=== PATIENT | male | born 1970 | race Asian ===

== ENCOUNTER 2023-09-22 08:51 | Emergency (ER) | payer OTHER ==
[2023-09-22] MEDS ORDERED: amLODIPine BESYLATE 5 MG TABLET (FP) PO ONE (09:00)
[2023-09-22 09:08] VITALS: PULSE 80; RESP 16; TEMP 98.5; BMI 23.5
[2023-09-22 09:59] LABS: HEMOGLOBIN 15.6 G/dL (11.7-16.9); MCH 28.2 pg (25.7-33.7); MCHC 33.1 g/dl (32.0-35.9); MEAN CELL VOLUME 85.1 fl (80-96); MEAN PLT VOLUME 9.8 fl (7.5-11.1); PLATELET COUNT 209.5 10^3/uL (134-434); RBC 5.52 10^6/uL (4.00-5.60); RDW 14.5 % (11.9-15.9); WHITE BLOOD COUNT 8.5 10^3/uL (4.0-10.8)
[2023-09-22 10:05] LABS: PLATELET ESTIMATE ADEQUATE
[2023-09-22 10:06] LABS: CALCIUM 9.6 mg/dl (8.5-10.1); CREATININE 1.2 mg/dl (0.6-1.3); POTASSIUM 4.2 mmol/L (3.5-5.1)
[2023-09-22 10:30] VITALS: BP 154/112
== END 2023-09-22 10:46 | disposition home or self-care (01) ==
LOC: FER 08:51
DX: I10 Essential (primary) hypertension (principal); R51.9 Headache, unspecified
CPT/HCPCS: 36415; 80048; 85027; 93005; 99284-25